=== PATIENT | female | born 2000 ===

== ENCOUNTER 2022-01-08 00:49 | Emergency (ER) | payer SELFPAY ==
[2022-01-08 01:27] VITALS: BP 106/64
[2022-01-08] MEDS ORDERED: ONDANSETRON 4 MG ODT TAB PO ONE (01:29)
[2022-01-08 02:54] LABS: Hematocrit 38.5 % (30.3-42.9); Hemoglobin 12.9 gm/dl (10.1-14.3); Mean Corpuscular HGB Conc 33 % (30-34); Mean Corpuscular Volume 84 fl (79-97); Platelet Count 185 K/mm3 (140-440); Red Blood Count 4.56 M/mm3 (3.65-5.03); Red Cell Distribution Width 14.1 % (13.2-15.2)
[2022-01-08 02:57] LABS: Bilirubin,Urine NEG (Negative); Blood,Urine NEG (Negative); Color,Urine Yellow (Yellow); Mucus,Urine 3+ /HPF; Urobilinogen,Urine < 2.0 mg/dL (<2.0)
[2022-01-08 03:05] LABS: Alanine Aminotransferase 16 units/L (7-56); Blood Urea Nitrogen 11 mg/dL (7-17); Calcium 10.2 mg/dL (8.4-10.2); Hemolysis Index 16
[2022-01-08 03:13] LABS: BUN/Creatinine Ratio 18
[2022-01-08 05:08] LABS: Basophils % (Manual) 0 % (0.0-1.8); Eosinophils % (Manual) 0 % (0.0-4.3); Large Platelets Few; Platelet Estimate Consistent w Auto; RBC Morphology Normal; Total Cells Counted 100
== END 2022-01-08 05:00 | disposition left against medical advice (07) ==
LOC: ED 00:49
DX: R10.9 Unspecified abdominal pain (principal); Z53.21 Procedure and treatment not carried out due to patient leaving prior to being seen by health care provider
CPT/HCPCS: 36415; 80053; 81001; 84702; 85007; 85025; J3490; Q0162